=== PATIENT | female | born 1955 | race Native Hawaiian/Other Pacific Islander ===

== ENCOUNTER 2019-03-05 07:41 | Day surgery (SDC) | payer OTHER ==
[~2019-03-05] VITALS: Ht 160 cm; Wt 81.6 kg
[2019-03-05 08:21] VITALS: BP 135/71
[2019-03-05 12:01] VITALS: BP 130/68
== END 2019-03-05 11:00 | disposition home or self-care (01) ==
LOC: DS 07:41 → GI 09:30 → DS 10:30 → OR 10:30 → GI 10:30 → DS 11:00
DX: K59.00 Constipation, unspecified (principal); K29.50 Unspecified chronic gastritis without bleeding; K20.8 Other esophagitis; K31.89 Other diseases of stomach and duodenum; R63.4 Abnormal weight loss; D50.9 Iron deficiency anemia, unspecified; D64.9 Anemia, unspecified; E11.9 Type 2 diabetes mellitus without complications; J45.909 Unspecified asthma, uncomplicated; Z79.899 Other long term (current) drug therapy; Z79.84 Long term (current) use of oral hypoglycemic drugs; Z85.42 Personal history of malignant neoplasm of other parts of uterus; Z90.710 Acquired absence of both cervix and uterus; Z96.643 Presence of artificial hip joint, bilateral; Z98.890 Other specified postprocedural states
CPT/HCPCS: 43235; 45378; J1200; J1610; J2250; J2310; J3010; J3490